=== PATIENT | female | born 1935 | race Caucasian/White ===

== ENCOUNTER 2017-01-17 02:28 | Emergency (ER) | payer OTHER ==
--- NOTE | 2017-01-17 05:22 | ED Physician Documentation ---
Cardiopulmonary Resuscitation - HISTORIAN Historian: paramedics - [facility] Chief Complaint: CPR Additional Information: Paramedics called to house for lifting help and witnessed arrest. CPR begun immediately. Admitting Diagnosis: cardiopulmonary arrest Witnessed Arrest?: Yes CPR Initiated Prior to MD Arrival?: Yes Down-Time before ACLS?: 0 Further Comments: no - INITIAL FINDING Mentation: unresponsive Respirations: no respirations Pulse: absent Rhythm: asystole - TREATMENT INITIATED CHEF MANAGER Oxygen: intubated CRP/Thumper: No IV Access: Yes (IO) - MEDICATIONS GIVEN CHEF MANAGER How Many Doses of Epinephrine?: 2 Vasopressin Given?: No How Many Doses of Atropine?: 2 Amiodorone Given?: No Sodium Bicarb Given?: No Lidocaine Given?: No - ROS CONST: no problems EYES/ENT: none CVS/RESP: none GI/: denies: nausea, vomiting, abdominal pain, problems urinating MS/SKIN/LYMPH: denies: joint pain, rash, swollen glands NEURO/PSYCH: denies: dizziness, fainting, anxiety, depression - PAST HX Past History: other (htn, lung ca, hypothyroidism) - SOCIAL HX Smoking History: non-smoker Alcohol Use: none Drug Use: none - FAMILY HX Family History: Yes - REVIEWED ASSESSMENTS Nursing Assessment Reviewed: Yes Vitals Reviewed: Yes Procedures Time of Intubation: 02:40 Intubation Method: orotracheal Tube Size (cm): 7.5 Breath Sounds after Intubation: equal Intubation Complications: no complications Post Intubation Xray: No Progress - Results/Orders Results/Orders: Epi given x 4, bicarb given x 2, 500 cc bolus NS given IO - Progress Progress: Pt never entered any other rhythm than asystole. Pt. without spontaneous resp, pulse, pupils fixed, dilated, code called at 0300. Critical Care Note - Critical Care Note Total Time (mins): 30 Comments: ACLS protocol ED Results Lab/Radiology - Lab Results Lab Results: none taken - Radiology Radiology Impressions: none taken Chest Pain Physical Exam - EXAM General Appearance: other (unresponsive) EENT: other (pupils fixed and dilated) Neck: nml inspection Respiratory: other (no spontaneous respirations) CVS: other (no spontaneous pulse) Abdomen: other (distension) Skin: cyanosis (nose) Extremities: edema Neuro: other (unresponsive) Discharge Clincal Impression: cardiopulmonary failure Comments: despite ACLS protocol x 1 hour between EMS and hosp, code blue unsuccessful Condition: Stable Disposition: 20 Decision to Admit: NO Decision Time: 03:00
[2017-01-17] MEDS ORDERED: EPINEPHrine 0.1 MG/ML DISP.SYRIN IVP ONE (05:34)
[2017-01-17] MEDS ORDERED: SODIUM BICARBONATE 50 MEQ/50 ML SYRINGE ONE (05:35)
== END 2017-01-17 04:40 | disposition expired ==
LOC: ED 02:28
DX: I46.9 Cardiac arrest, cause unspecified (principal)
CPT/HCPCS: 96374; 99291; J0171; S1016